=== PATIENT | male | born 1985 | race Caucasian/White ===

== ENCOUNTER 2024-12-02 11:09 | Emergency (ER) | payer SELFPAY ==
[2024-12-02] MEDS: Orphenadrine 60 MG/2 ML Inj IM ONE (11:55)
== END 2024-12-02 14:27 | disposition home or self-care (01) ==
LOC: MW.ED 11:09
DX: M54.6 Pain in thoracic spine (principal); M25.511 Pain in right shoulder; E66.9 Obesity, unspecified; Z68.43 Body mass index [BMI] 50.0-59.9, adult; Z86.16 Personal history of COVID-19; Z88.6 Allergy status to analgesic agent; Z79.899 Other long term (current) drug therapy; Z75.8 Other problems related to medical facilities and other health care
CPT/HCPCS: 72125; 72128; 73030; 96372; 99284; J2360

== ENCOUNTER 2024-12-17 09:20 | Emergency (ER) | payer SELFPAY ==
[2024-12-17 09:54] LABS: BASOPHILS ABSOLUTE AUTO 0.06 K/uL (0.00-0.20); BASOPHILS PERCENT AUTO 0.7 % (0.0-1.0); EOSINOPHILS PERCENT AUTO 3.4 % (0.0-6.0); HEMATOCRIT 50.5 % (42.0-52.0); HEMOGLOBIN 16.1 g/dL (14.0-18.0); IMMATURE GRAN ABSOLUTE AUTO 0.04 K/uL (0.00-0.05); IMMATURE GRAN PERCENT AUTO 0.5 % (0.0-0.4); LYMPHOCYTES ABSOLUTE AUTO 1.92 K/uL (1.00-4.80); LYMPHOCYTES PERCENT AUTO 21.9 % (24.0-44.0); MEAN CORPUSCULAR HEMOGLOBIN 25.4 pg (28.0-32.0); MEAN CORPUSCULAR HGB CONC 31.9 g/dL (32.0-36.0); MEAN CORPUSCULAR VOLUME 79.8 fL (83.0-99.0); MEAN PLATELET VOLUME 9.9 fL (9.4-12.4); MONOCYTES ABSOLUTE AUTO 0.66 K/uL (0.00-0.80); MONOCYTES PERCENT AUTO 7.5 % (0.0-8.0); NEUTROPHILS ABSOLUTE AUTO 5.79 K/uL (1.80-7.70); PLATELET COUNT,PLT 258 K/uL (150-400); RED BLOOD CELL COUNT 6.33 M/uL (4.52-5.90); WHITE BLOOD CELL COUNT,WBC 8.77 K/uL (3.9-11.3)
[2024-12-17 10:12] LABS: A/G RATIO 0.9 (0.9-1.6); ALANINE AMINOTRANSFERASE,ALT 45 IU/L (14-63); ALBUMIN 3.9 g/dL (3.4-5.0); ALKALINE PHOSPHATASE 85 U/L (46-116); ASPARTATE AMNIOTRANSFERASE,AST 33 IU/L (15-37); BILIRUBIN TOTAL 0.6 mg/dL (0.2-1.0); BLOOD UREA NITROGEN,BUN 10 mg/dL (7.0-18.0); CALCIUM 9.6 mg/dL (8.5-10.1); CARBON DIOXIDE,CO2 25.5 mmol/L (21.0-32.0); CHLORIDE,CL 99 mmol/L (98-107); CREATININE 1.1 mg/dL (0.8-1.3); GLUCOSE RANDOM 102 mg/dL (74-106); POTASSIUM,K 4.2 mmol/L (3.5-5.1); PROTEIN TOTAL,TP 8.1 g/dL (6.4-8.2); SODIUM,NA 131 mmol/L (136-148)
[2024-12-17 10:13] LABS: ESTIMATED GFR 87 mL/min (>60)
[2024-12-17] MEDS: Gadoteridol 279.3 MG/ML 20 ML SDV IVPUSH ONE (11:01)
[2024-12-17] MEDS: Iopamidol 755 MG/ML 500 ML Multipack Bottle IVPUSH STA (11:14)
== END 2024-12-17 12:31 | disposition home or self-care (01) ==
LOC: MW.ED 09:20
DX: G51.0 Bell's palsy (principal); F17.210 Nicotine dependence, cigarettes, uncomplicated; Z88.6 Allergy status to analgesic agent; Z79.899 Other long term (current) drug therapy
CPT/HCPCS: 36415; 70450; 70496; 70498; 70553; 80053; 85025; 93005; 99284; A9579; Q9967